=== PATIENT | male | born 1990 | race Caucasian/White ===

== ENCOUNTER 2018-11-30 15:12 | Emergency (ER) | payer OTHER, SELFPAY ==
[2018-11-30 15:20] VITALS: BP 139/74; PULSE 65; RESP 16; TEMP 36.6; O2SAT 99
--- NOTE | 2018-11-30 15:52 | ED.GENADUL_ITS ---
Discharge Plan Disposition Patient Disposition: HOME Discharge Details Chief Complaint: RashLesion Clinical Impression: Abscess ED Provider: Eladio Duong Home Meds and New Rx's Prescriptions: New cephalexin [Keflex] 500 mg capsule 500 mg PO QID 5 Days Qty: 20 RF: 0 Discharge Instructions Instructions: Abscess (ED) Additional Instructions: You were seen for your abscess in the emergency department. Wound was packed and will be need to be removed in 3 days. Follow-up with your primary care provider or return to the ED for packing removal. Referrals: Maritza Guerrero NP [NURSE PRACTITIONER] - 3 days Medical Decision Making This is a nontoxic-appearing 28-year-old male presenting with a subcutaneous abscess located on his right middle back. I&D of abscess reveals purulent purulent foul-smelling discharge. Wound packed. Plan is to place individual on p.o. antibiotics and return in 3 days for packing removal. HPI General Date/Time Provider Initiated Documentation: 11/30/18 15:31 . HPI Narrative: Patient is a 28-year-old male presenting to the emergency department with a abscess on his mid back which has been present over the last 3 days. He denies any fevers. His mother who is a nurse tried aspirating the fluid out of the abscess and was unsuccessful Related Data Home Medications Medication Instructions Recorded Confirmed cephalexin [Keflex] 500 mg PO QID 5 Days #20 cap 11/30/18 Previous Rx's Medication Instructions Recorded cephalexin [Keflex] 500 mg PO QID 5 Days #20 cap 11/30/18 Allergies Allergy/AdvReac Type Severity Reaction Status Date / Time No Known Allergies Allergy Unverified 11/30/18 15:24 General Stated Complaint: RashLesion LOCO: 4 Review of Systems Constitutional Denies chills, Denies fever(s), Denies night sweats and Denies weakness Eyes Reports as per HPI Cardiovascular Denies dyspnea Respiratory Denies dyspnea Musculoskeletal Denies arthralgias and Denies joint swelling Integumentary/Breasts Denies acne, Reports lesions, Denies erythema, Denies rash, Denies skin ulcer and Denies wounds Neurologic Denies weakness Hematologic/Lymphatic Denies easy bleeding PFSH Social History Smoking/Tobacco Use Status: Current every day Tobacco Type: cigarettes Exam Const General: cooperative and healthy appearing Nutritional Appearance: average body habitus Orientation: alert, awake and oriented x3 HENMT Head: normal to inspection Ears: hearing grossly normal bilaterally General nose exam: external nose normal Face and sinus: normal facial exam Neck Neck: normal visual inspection Chest Chest: normal inspection of the chest Resp Effort & Inspection: normal respiratory effort Auscultation: clear to auscultation bilaterally Cardio Jugular venous pressure: no JVD Pulses: normal peripheral pulses Back/Spine/Pelvis Other: Large fluctuating abscess located along the mid thoracic paraspinal musculature. Area is erythematous and tender to touch. Back/spine/pelvis image: 1. Skin Lesions: lesion noted (Large fluctuating abscess located on the mid back) Extrem General: normal to inspection Course Jnjku-po-defy ultrasound reveals a large roughly 1 cm deep hypoechoic lesion. Vital Signs Temperature 36.6 C 11/30/18 15:20 Pulse 65 11/30/18 15:20 Respiratory Rate 16 11/30/18 15:20 Blood Pressure 139/74 11/30/18 15:20 Pulse Oximetry 99 11/30/18 15:20 Temperature 36.6 C 11/30/18 15:20 Temperature Source Skin 11/30/18 15:20 Pulse 65 11/30/18 15:20 Respiratory Rate 16 11/30/18 15:20 Respiratory Effort Non-Labored 11/30/18 15:22 Blood Pressure 139/74 11/30/18 15:20 Blood Pressure Position Sitting 11/30/18 15:20 Pulse Oximetry 99 11/30/18 15:20 Oxygen Delivery Method Room Air 11/30/18 15:20 Oxygen Flow Rate 0 11/30/18 15:20 Pain Level 7 11/30/18 15:20 Procedures Abscess I/D Site: Back Sedation/analgesia: None Local Anesthetic: Lidocaine 2% Amount of anesthesia used (mL): 3 Technique: Incised with #11 Blade Amount of fluid expressed (mL): 5 Irrigation: No Packing used?: Iodoform Complications: Bleeding
[2018-11-30] MEDS: Cephalexin 500 MG CAP PO (16:50)
[2018-11-30] MEDS: Cephalexin 500 MG CAP 1000 MG PO (16:51)
== END 2018-11-30 16:57 | disposition home or self-care (01) ==
PROVIDERS: Emergency Provider Physician Assistant
DX: L02.212 Cutaneous abscess of back [any part, except buttock and flank] (principal)
CPT/HCPCS: 10060